=== PATIENT | male | born 2000 | race Caucasian/White ===

== ENCOUNTER 2020-07-16 15:43 | Emergency (ER) | payer OTHER ==
[2020-07-16 16:28] LABS: HEMOGLOBIN 16.2 gm/dl (14.0-17.5); RED BLOOD COUNT 5.25 M/UL (4.20-5.50); WHITE BLOOD COUNT 16.6 K/UL (4.5-11.0)
[2020-07-16 16:51] LABS: BUN/CREATININE RATIO 18 (0-10)
== END 2020-07-16 20:14 | disposition home or self-care (01) ==
LOC: ER1 15:43
PROVIDERS: Family Medicine
DX: F10.129 Alcohol abuse with intoxication, unspecified (principal)
CPT/HCPCS: 80053; 80307; 85025; 99284; G0480; J3411; J3475; J7030

== ENCOUNTER 2021-06-07 12:24 | Emergency (ER) | payer OTHER ==
[2021-06-07 12:49] LABS: HEMOGLOBIN 15.6 gm/dl (14.0-17.5); RED BLOOD COUNT 5.16 M/UL (4.20-5.50); WHITE BLOOD COUNT 25.6 K/UL (4.5-11.0)
[2021-06-07 13:13] LABS: BUN/CREATININE RATIO 17 (0-10)
[2021-06-07] MEDS ORDERED: CEFUROXIME500 MG PO (19:51)
[2021-06-07] MEDS ORDERED: COLACE 100MG C100 MG PO (19:51)
[2021-06-09 04:09] LABS: HBSAG SCREEN Negative (Negative); HEP A AB, IGM Indeterminate (Negative); HEP B CORE AB, IGM Negative (Negative); HEP C VIRUS AB 0.1 (0.0-0.9)
[2021-06-09 22:09] LABS: CHLAMYDIA BY NAA Negative (Negative); GONOCOCCUS BY NAA Negative (Negative); TRICH VAG BY NAA Negative (Negative)
== END 2021-06-07 19:58 | disposition home or self-care (01) ==
LOC: ER1 12:24
PROVIDERS: Emergency Medicine; Physician Assistant Medical
DX: K56.41 Fecal impaction (principal); F17.210 Nicotine dependence, cigarettes, uncomplicated; N39.0 Urinary tract infection, site not specified; D72.829 Elevated white blood cell count, unspecified; F11.10 Opioid abuse, uncomplicated
CPT/HCPCS: 80053; 80074; 81001; 83605; 83690; 85025; 87040; 87086; 87661; 99284; Q9967

== ENCOUNTER 2021-11-01 17:01 | Emergency (ER) | payer SELFPAY ==
[~2021-11-01 17:01] MED LIST: CEFUROXIME500 MG PO; COLACE 100MG C100 MG PO
== END 2021-11-01 18:20 | disposition home or self-care (01) ==
LOC: ER1 17:01
DX: S61.212A Laceration without foreign body of right middle finger without damage to nail, initial encounter (principal); F17.200 Nicotine dependence, unspecified, uncomplicated; W26.0XXA Contact with knife, initial encounter; Y92.89 Other specified places as the place of occurrence of the external cause; Y99.0 Civilian activity done for income or pay
CPT/HCPCS: 12001; 90471; 90715; 99282

== ENCOUNTER 2021-11-11 11:30 | Emergency (ER) | payer OTHER | END 2021-11-11 12:11 | disposition home or self-care (01) | LOC: ER1 11:30 | DX: S61.210D Laceration without foreign body of right index finger without damage to nail, subsequent encounter (principal); X58.XXXD Exposure to other specified factors, subsequent encounter | CPT/HCPCS: 99281 ==

== ENCOUNTER 2021-11-15 23:22 | Emergency (ER) | payer OTHER | END 2021-11-16 02:09 | disposition home or self-care (01) | LOC: ER1 23:22 | DX: S61.210D Laceration without foreign body of right index finger without damage to nail, subsequent encounter (principal); F17.200 Nicotine dependence, unspecified, uncomplicated; W26.0XXD Contact with knife, subsequent encounter | CPT/HCPCS: 99281 ==